=== PATIENT | female | born 1940 ===

== ENCOUNTER 2017-09-20 13:46 | Inpatient (IN) | payer MEDICARE ==
[2017-09-20] MEDS ORDERED: Sodium Chloride 0.9% 1,000 ML IV ONE (14:05)
[2017-09-20] MEDS ORDERED: Sodium Chloride 0.9% 1,000 ML ONE (14:34)
--- NOTE | 2017-09-20 14:35 | RAD ---
PROCEDURE: CHEST RADIOGRAPH, 1 VIEW HISTORY: chest pain COMPARISON: None available. FINDINGS: LUNGS: Clear. PLEURA: No pneumothorax or pleural fluid seen. CARDIOVASCULAR: Normal. OSSEOUS STRUCTURES: No significant abnormalities. VISUALIZED UPPER ABDOMEN: Normal. OTHER FINDINGS: None. IMPRESSION: No active disease.
[2017-09-20 14:43] LABS: BASO % 0.5 % (0.0-2.0); HEMOGLOBIN 12.3 g/dL (11.0-16.0); LYMPH # 0.5 K/uL (1.0-4.3); LYMPH % 12.9 % (20.0-40.0); MEAN CELL VOLUME 88.6 fL (81.0-99.0); MEAN CORPUSCULAR HGB CONC 33.8 g/dL (33.0-37.0); MEAN PLATELET VOLUME 9.6 fL (7.2-11.7); MONO # 0.3 K/uL (0.0-0.8); MONO % 7.5 % (0.0-10.0); NEUT # 2.9 K/uL (1.8-7.0); NEUT % 79.1 % (50.0-75.0); NRBC % 0.1 % (0.0-2.0); RBC 4.1 Mil/uL (3.80-5.20); RED CELL DISTRIBUTION WIDTH 14.4 % (11.5-14.5); WHITE BLOOD COUNT 3.7 K/uL (4.8-10.8)
[2017-09-20 14:56] LABS: VENOUS BLOOD GAS BASE EXCESS -15.9 mmol/L (0.0-2.0); VENOUS BLOOD GAS PCO2 17 mmHg (40-60); VENOUS BLOOD GAS PO2 104 mm/Hg (30-55); VENOUS BLOOD PH 7.29 (7.32-7.43)
[2017-09-20 14:57] LABS: ALB/GLOB RATIO 1.2 (1.0-2.1); ALBUMIN 3.8 g/dL (3.5-5.0); ALT/SGPT 44 U/L (9-52); AST/SGOT 47 U/L (14-36); BLOOD UREA NITROGEN 14 mg/dL (7-17); CALCIUM 8.5 mg/dl (8.6-10.4); GFR AFRICAN-AMERICAN > 60; GFR NON-AFRICAN AMERICAN > 60
[2017-09-20 14:58] LABS: INR 1.1; PROTHROMBIN TIME 12.4 SECONDS (9.7-12.2)
--- NOTE | 2017-09-20 14:58 | C.PDOC ---
History Of Present Illness 76-year-old female, PMHx includes Dementia, presents to the emergency department with complaints of generalized weakness, fever x3 days. Patient states "diagnosed with flu" at urgent care, but still has worsening cough. Denies any shortness of breath, nausea/vomiting, neck pain, back pain, visual changes, dizziness, abdominal pain. as per family, pt is confused baseline, but is more confused. Time Seen by Provider: 09/20/17 13:47 Chief Complaint (Nursing): Weakness/Neurological Deficit History Per: Patient History/Exam Limitations: no limitations Onset/Duration Of Symptoms: Days Current Symptoms Are (Timing): Still Present Past Medical History Reviewed: Historical Data, Nursing Documentation, Vital Signs Vital Signs: Last Vital Signs Temp 98.9 F 09/20/17 22:52 Pulse 78 09/20/17 22:52 Resp 20 09/20/17 22:52 BP 115/65 09/20/17 22:52 Pulse Ox 97 09/20/17 22:52 - Medical History PMH: Dementia Family History: States: No Known Family Hx - Social History Hx Alcohol Use: No Hx Substance Use: No Review Of Systems Constitutional: Positive for: Fever, Weakness ENT: Negative for: Ear Pain, Ear Discharge, Nose Congestion, Throat Pain Cardiovascular: Negative for: Chest Pain Respiratory: Positive for: Cough. Negative for: Shortness of Breath Gastrointestinal: Negative for: Nausea, Vomiting, Abdominal Pain, Diarrhea Genitourinary: Negative for: Dysuria, Hematuria Musculoskeletal: Negative for: Neck Pain, Back Pain Neurological: Negative for: Numbness, Headache, Dizziness Physical Exam - Physical Exam Appears: Non-toxic, No Acute Distress Skin: Normal Color, Warm, Dry, No Rash Head: Normacephalic Eye(s): bilateral: PERRL Nose: Normal Oral Mucosa: Moist Lips: Normal Appearing Neck: Normal ROM, Trachea Midline, Supple, Other (No meningeal signs) Chest: Symmetrical Cardiovascular: Rhythm Regular, No Murmur Respiratory: No Decreased Breath Sounds, No Accessory Muscle Use, Other (coarse breath sounds B/L) Extremity: Normal ROM, No Deformity, No Swelling Neurological/Psych: Oriented x3, Normal Speech ED Course And Treatment - Laboratory Results Result Diagrams: 09/20/17 14:40 09/20/17 14:40 O2 Sat by Pulse Oximetry: 97 (RA) Pulse Ox Interpretation: Normal Medical Decision Making Medical Decision Making: ro sepsis/ams- labs imaging pending- flu positive. ekg nsr [address] twave changes Disposition - Disposition Disposition: HOSPITALIZED Disposition Time: 22:54 Condition: FAIR - Clinical Impression Clinical Impression: Sepsis, Influenza, Altered mental status - Scribe Statement The provider has reviewed the documentation as recorded by the Scribe (Sara Morris) All medical record entries made by the Scribe were at my direction and personally dictated by me. I have reviewed the chart and agree that the record accurately reflects my personal performance of the history, physical exam, medical decision making, and the department course for this patient. I have also personally directed, reviewed, and agree with the discharge instructions and disposition. Decision To Admit - Pt Status Changed To: Hospital Disposition Of: Inpatient - Admit Certification Admit to Inpatient:: After my assessment, the patient will require hospitalization for at least two midnights. This is because of the severity of symptoms shown, intensity of services needed, and/or the medical risk in this patient being treated as an outpatient. - InPatient: Physician Admission Certification: I certify that this patient requires 2 or more midnights of care for the following reason:: ams, suspet sepsis. needs iv anbitoics tamiflu - . Bed Request Type: Regular Admitting Physician: Miriam Stover Patient Diagnosis: Sepsis, Influenza, Altered mental status
[2017-09-20] MEDS ORDERED: Azithromycin 500 MG in Sodium Chloride 0.9% 250 ML IVPB STA (15:01)
--- NOTE | 2017-09-20 15:57 | CT ---
PROCEDURE: CT HEAD WITHOUT CONTRAST. HISTORY: ams COMPARISON: None available. TECHNIQUE: Axial computed tomography images were obtained through the head/brain without intravenous contrast. Radiation dose: Total exam DLP = 989.63 mGy-cm. This CT exam was performed using one or more of the following dose reduction techniques: Automated exposure control, adjustment of the mA and/or kV according to patient size, and/or use of iterative reconstruction technique. FINDINGS: HEMORRHAGE: No intracranial hemorrhage. BRAIN: No mass effect or edema. Mild diffuse age-appropriate cerebral atrophy. Moderate periventricular white matter lucency consistent with chronic microvascular ischemic change. No evidence of acute infarct. VENTRICLES: Unremarkable. No hydrocephalus. CALVARIUM: Unremarkable. PARANASAL SINUSES: Unremarkable as visualized. No significant inflammatory changes. MASTOID AIR CELLS: Unremarkable as visualized. No inflammatory changes. OTHER FINDINGS: None. IMPRESSION: No intracranial mass, hemorrhage or evidence of acute infarct. Moderate chronic white matter ischemic change. Mild age-appropriate atrophy.
[2017-09-20] MEDS ORDERED: Oseltamivir 6 MG/ML PO SCH ×2 (16:30→18:00)
--- NOTE | 2017-09-20 16:38 | CP.PCM.HP ---
Past Patient History - Past Social History Smoking Status: Never Smoked - NEUROLOGICAL Hx Dementia: Yes - PSYCHIATRIC Hx Substance Use: No - SURGICAL HISTORY Hx Surgeries: No Meds Allergies/Adverse Reactions: Allergies Allergy/AdvReac Type Severity Reaction Status Date / Time No Known Allergies Allergy Unverified 09/20/17 14:00 Physical Exam - Constitutional Appears: Well - Head Exam Head Exam: ATRAUMATIC, NORMAL INSPECTION, NORMOCEPHALIC - Eye Exam Eye Exam: EOMI, Normal appearance, PERRL Pupil Exam: NORMAL ACCOMODATION, PERRL - ENT Exam ENT Exam: Mucous Membranes Moist, Normal Exam - Neck Exam Neck exam: Positive for: Normal Inspection - Respiratory Exam Respiratory Exam: Decreased Breath Sounds - Cardiovascular Exam Cardiovascular Exam: REGULAR RHYTHM, +S1, +S2 - GI/Abdominal Exam GI & Abdominal Exam: Diminished Bowel Sounds, Soft - Rectal Exam Rectal Exam: Deferred Results - Vital Signs Recent Vital Signs: Last Vital Signs Temp 104.3 F H 09/20/17 13:51 Pulse 109 H 09/20/17 13:51 Resp 21 09/20/17 13:51 BP 150/65 09/20/17 13:51 Pulse Ox 97 09/20/17 15:42 - Labs Result Diagrams: 09/20/17 14:40 09/20/17 14:40 Labs: Laboratory Results - last 24 hr 09/20/17 09/20/17 09/20/17 14:04 14:40 14:40 WBC 3.7 L RBC 4.10 Hgb 12.3 Hct 36.3 MCV 88.6 MCH 30.0 MCHC 33.8 RDW 14.4 Plt Count 141 MPV 9.6 Neut % (Auto) 79.1 H Lymph % (Auto) 12.9 L Brooks % (Auto) 7.5 Eos % (Auto) 0.0 Baso % (Auto) 0.5 Neut # (Auto) 2.9 Lymph # (Auto) 0.5 L Brooks # (Auto) 0.3 Eos # (Auto) 0.0 Baso # (Auto) 0.0 PT 12.4 H INR 1.1 APTT 24 pO2 VBG pH VBG pCO2 VBG HCO3 VBG Total CO2 VBG O2 Sat (Calc) VBG Base Excess VBG Potassium Glucose Lactate Crit Value Called To Crit Value Called By Crit Value Read Back Blood Gas Notified Time Sodium Potassium Chloride Carbon Dioxide Anion Gap BUN Creatinine Est GFR ( Amer) Est GFR (Non-Af Amer) Random Glucose Calcium Total Bilirubin AST ALT Alkaline Phosphatase Troponin I Total Protein Albumin Globulin Albumin/Globulin Ratio Venous Blood Potassium Influenza Typ A,B (EIA) Pos for influenza b H 09/20/17 09/20/17 14:40 14:50 WBC RBC Hgb Hct MCV MCH MCHC RDW Plt Count MPV Neut % (Auto) Lymph % (Auto) Brooks % (Auto) Eos % (Auto) Baso % (Auto) Neut # (Auto) Lymph # (Auto) Brooks # (Auto) Eos # (Auto) Baso # (Auto) PT INR APTT pO2 104 H VBG pH 7.29 L VBG pCO2 17 L* VBG HCO3 12.5 VBG Total CO2 8.7 L VBG O2 Sat (Calc) 100.9 H VBG Base Excess -15.9 L VBG Potassium 0.8 L* Glucose 39 L* Lactate 0.8 Crit Value Called To Nakul tinoco rn Crit Value Called By Mr Crit Value Read Back Y Blood Gas Notified Time 1456 Sodium 136 158.0 H Potassium 4.1 Chloride 99 132.0 H Carbon Dioxide 24 Anion Gap 17 BUN 14 Creatinine 0.7 Est GFR ( Amer) > 60 Est GFR (Non-Af Amer) > 60 Random Glucose 140 H Calcium 8.5 L Total Bilirubin 0.3 AST 47 H ALT 44 Alkaline Phosphatase 87 Troponin I < 0.0120 Total Protein 7.2 Albumin 3.8 Globulin 3.3 Albumin/Globulin Ratio 1.2 Venous Blood Potassium 0.8 L* Influenza Typ A,B (EIA)
[2017-09-20] MEDS: Enoxaparin 40 mg Syringe SC SCH (17:20)
[2017-09-20] MEDS ORDERED: Enoxaparin 40 mg Syringe ONE (17:20)
[2017-09-20 19:17] LABS: SQUAMOUS EPITHIAL 1 /hpf (0-5); URINE BILIRUBIN NEGATIVE (NEGATIVE); URINE CLARITY Clear (Clear); URINE COLOR Straw (YELLOW); URINE GLUCOSE (UA) NORMAL (Normal); URINE LEUKOCYTE ESTERASE NEG Leu/uL (Negative); URINE PROTEIN NEGATIVE (NEGATIVE); URINE UROBILINOGEN NORMAL mg/dL (0.2-1.0)
[2017-09-20 19:23] LABS: URINE BLOOD TRACE (NEGATIVE)
[2017-09-21] MEDS ORDERED: Pantoprazole 40 mg EC Tab PO SCH (10:00)
[2017-09-21] MEDS: cefTRIAXone 2 GM in Sodium Chloride 0.9% 100 ML IVPB SCH (11:33)
[2017-09-21] MEDS: Enoxaparin 40 mg Syringe SC SCH (11:33)
[2017-09-21] MEDS: Oseltamivir 6 MG/ML PO SCH ×2 (11:34→17:42)
--- NOTE | 2017-09-21 15:17 | CP.PCM.PN ---
Subjective - Date & Time of Evaluation Date of Evaluation: 09/21/17 Time of Evaluation: 08:20 - Subjective Subjective: clinically same Objective - Vital Signs/Intake and Output Vital Signs (last 24 hours): Temp Pulse Resp BP Pulse Ox 98.6 F 94 H 20 105/61 90 L 09/21/17 08:34 09/21/17 08:34 09/21/17 08:34 09/21/17 08:34 09/21/17 08:34 Intake and Output: 09/21/17 09/21/17 06:59 18:59 Intake Total 500 Balance 500 - Medications Medications: Current Medications Donepezil HCl (Aricept) 10 mg PO [facility] Enoxaparin Sodium (Lovenox) 40 mg SC DAILY [facility] Last Admin: 09/21/17 11:33 Dose: 40 mg Ceftriaxone Sodium 2 gm/ (Sodium Chloride) 100 mls @ 100 mls/hr IVPB DAILY [facility] PRN Reason: Protocol Last Admin: 09/21/17 11:33 Dose: 100 mls/hr Memantine (Namenda) 10 mg PO DAILY [facility] Oseltamivir Phosphate (Tamiflu Susp) 30 mg PO BID [facility] Last Admin: 09/21/17 11:34 Dose: 30 mg Pantoprazole Sodium (Protonix Ec Tab) 40 mg PO DAILY [facility] Last Admin: 09/21/17 11:33 Dose: 40 mg Pneumococcal Polyvalent Vaccine (Pneumovax 23 Vaccine) 0.5 ml IM .ONCE ONE Stop: 09/22/17 10:01 - Labs Labs: 09/20/17 14:40 09/20/17 14:40 PT 12.4 SECONDS (9.7-12.2) H 09/20/17 14:40 INR 1.1 09/20/17 14:40 APTT 24 SECONDS (21-34) 09/20/17 14:40 - Constitutional Appears: Well - Head Exam Head Exam: ATRAUMATIC, NORMAL INSPECTION, NORMOCEPHALIC - Eye Exam Eye Exam: EOMI, Normal appearance, PERRL Pupil Exam: NORMAL ACCOMODATION, PERRL - ENT Exam ENT Exam: Mucous Membranes Moist, Normal Exam - Neck Exam Neck Exam: Full ROM, Normal Inspection. absent: Lymphadenopathy - Respiratory Exam Respiratory Exam: Decreased Breath Sounds - Cardiovascular Exam Cardiovascular Exam: REGULAR RHYTHM, +S1, +S2 - GI/Abdominal Exam GI & Abdominal Exam: Soft, Diminished Bowel Sounds - Rectal Exam Rectal Exam: Deferred Assessment and Plan - Assessment and Plan (Free Text) Plan: Continue ceftriaxone Continue Lovenox Protonix Tamiflu Follow-up with ID consult As ordered
--- NOTE | 2017-09-21 16:02 | CP.PCM.CON ---
History of Present Illness - History of Present Illness History of Present Illness: dictated Past Patient History - Past Medical History & Family History Past Medical History?: Yes - Past Social History Smoking Status: Unknown If Ever Smoked - NEUROLOGICAL Hx Dementia: Yes - MUSCULOSKELETAL/RHEUMATOLOGICAL Hx Falls: Yes - PSYCHIATRIC Hx Substance Use: No - SURGICAL HISTORY Hx Surgeries: No - ANESTHESIA Hx Anesthesia: Yes Hx Anesthesia Reactions: No Meds Allergies/Adverse Reactions: Allergies Allergy/AdvReac Type Severity Reaction Status Date / Time No Known Allergies Allergy Unverified 09/20/17 14:00 - Medications Medications: Current Medications Donepezil HCl (Aricept) 10 mg PO HS [facility] Enoxaparin Sodium (Lovenox) 40 mg SC DAILY [facility] Last Admin: 09/21/17 11:33 Dose: 40 mg Ceftriaxone Sodium 2 gm/ (Sodium Chloride) 100 mls @ 100 mls/hr IVPB DAILY [facility] PRN Reason: Protocol Last Admin: 09/21/17 11:33 Dose: 100 mls/hr Memantine (Namenda) 10 mg PO DAILY [facility] Oseltamivir Phosphate (Tamiflu Susp) 30 mg PO BID [facility] Last Admin: 09/21/17 11:34 Dose: 30 mg Pantoprazole Sodium (Protonix Susp) 40 mg PO DAILY [facility] Pneumococcal Polyvalent Vaccine (Pneumovax 23 Vaccine) 0.5 ml IM .ONCE ONE Stop: 09/22/17 10:01 Results - Vital Signs Recent Vital Signs: Last Vital Signs Temp 98.6 F 09/21/17 08:34 Pulse 94 H 09/21/17 08:34 Resp 20 09/21/17 08:34 BP 105/61 09/21/17 08:34 Pulse Ox 90 L 09/21/17 08:34 - Labs Result Diagrams: 09/20/17 14:40 09/20/17 14:40 Labs: Laboratory Results - last 24 hr 09/20/17 09/20/17 09/21/17 19:09 19:12 07:15 POC Glucose (mg/dL) 165 H 116 H Urine Color Straw Urine Clarity Clear Urine pH 7.0 Ur Specific [place] 1.011 Urine Protein Negative Urine Glucose (UA) Normal Urine Ketones Trace Urine Blood Trace H Urine Nitrate Negative Urine Bilirubin Negative Urine Urobilinogen Normal Ur Leukocyte Esterase Neg Urine WBC (Auto) < 1 Urine RBC (Auto) 2 Ur Squamous Epith Cells 1 09/21/17 11:17 POC Glucose (mg/dL) 107 Urine Color Urine Clarity Urine pH Ur Specific [place] Urine Protein Urine Glucose (UA) Urine Ketones Urine Blood Urine Nitrate Urine Bilirubin Urine Urobilinogen Ur Leukocyte Esterase Urine WBC (Auto) Urine RBC (Auto) Ur Squamous Epith Cells
--- NOTE | 2017-09-22 08:06 | CON ---
DATE: Patient of Dr. Justina Stover. HISTORY OF PRESENT ILLNESS: The patient is a 76-year-old female. She has history of dementia. Daughter was at the bedside. She states she was having leg weakness, fever, and she has dementia, she was getting worse and agitated. She was taken to Urgent Care in [place] and was found to have diagnosed with flu. The patient was given Tamiflu. She has taken that for 2 days, but she was having worsening of cough and getting more confused, not eating much, and was getting poor appetite, and so the family brought her over to the hospital. She is still very confused, not able to say much, and she is falling asleep and drowsy, most of the history is taken from the patient's daughter who does give history of dementia. FAMILY HISTORY: No known family history. SOCIAL HISTORY: Negative for smoking or alcohol or substance abuse. REVIEW OF SYSTEMS: She had fever, weakness, generalized poor appetite, and altered mental status. No ear, nose, throat problems. No chest problems. No chest pain. She did have cough, and she had no shortness of breath, no nausea, no vomiting, no diarrhea. No urinary symptoms reported. No hematuria, dysuria. Did have weakness but it is generalized, not local weakness, and she came in yesterday. PHYSICAL EXAMINATION: GENERAL: I find, the patient is arousable but falls asleep. VITAL SIGNS: T-max was 99.8 today, blood pressure of 109/64, respirations are 20, heart rate is 81. HEENT: Head is atraumatic, normocephalic. Pupils are reacting to light. No ear, nose, and throat problems noted. No neck pain. Trachea is central. No lymphadenopathy present. LUNGS: Clear. Decreased breath sounds bilaterally due to unable to tell the patient to breathe deep. HEART: S1, S2 is regular. No murmurs appreciated. Abdomen: Soft, nontender. No guarding, no rigidity present. EXTREMITIES: No edema, clubbing or cyanosis. LABORATORY DATA: Labs are noted. Labs show white count is 3.7, hemoglobin 12.3, hematocrit 36.3, platelet count is 141. Chemistry shows sodium 133, potassium 4.1, chloride of 99, CO2 is 24, anion gap is 17, BUN is 14, creatinine 0.7. They did a venous blood, potassium was 0.8, I am not sure about that. We will look out for the results from yesterday, and she had a chest x-ray and head CT for altered mental status, and the chest x-ray shows no active disease, and the head CT shows no intracranial mass, hemorrhage, or evidence of acute infarct, moderate chronic white matter ischemic changes, mild , and she tested positive for flu so at this time, she is on Tamiflu as well as Rocephin. If she continues to improve and she eats and her mental status comes to her baseline, probably we can send her home with the Vantin and Tamiflu, we will follow. We will see how she does for a day or two until she becomes better. We will follow. IMp : Patient is high fever no improvement with antibiotics at home tested positive for influenza with history of Dementia admitted with fever and cough r/ o pneumonia bacterial with Flu sugg: to continue Tamiflu and Rocephin for now Alphonso Warner MD MTDKristie
[2017-09-22 08:26] LABS: BASO % 0.3 % (0.0-2.0); HEMOGLOBIN 11.8 g/dL (11.0-16.0); LYMPH # 1.1 K/uL (1.0-4.3); LYMPH % 23.6 % (20.0-40.0); MEAN CELL VOLUME 87.1 fL (81.0-99.0); MEAN CORPUSCULAR HEMOGLOBIN 30.4 pg (27.0-31.0); MEAN CORPUSCULAR HGB CONC 34.9 g/dL (33.0-37.0); MEAN PLATELET VOLUME 9.3 fL (7.2-11.7); MONO # 0.2 K/uL (0.0-0.8); MONO % 4.4 % (0.0-10.0); NEUT # 3.5 K/uL (1.8-7.0); NEUT % 71.7 % (50.0-75.0); RBC 3.9 Mil/uL (3.80-5.20); RED CELL DISTRIBUTION WIDTH 14.1 % (11.5-14.5); WHITE BLOOD COUNT 4.8 K/uL (4.8-10.8)
[2017-09-22 08:34] LABS: BLOOD UREA NITROGEN 9 mg/dL (7-17); CALCIUM 8.2 mg/dl (8.6-10.4); GFR AFRICAN-AMERICAN > 60; GFR NON-AFRICAN AMERICAN > 60
[2017-09-22] MEDS: Pantoprazole 40 mg Susp UD PO SCH (09:45)
[2017-09-22] MEDS: Enoxaparin 40 mg Syringe SC SCH (09:46)
[2017-09-22] MEDS: cefTRIAXone 2 GM in Sodium Chloride 0.9% 100 ML IVPB SCH (09:46)
[2017-09-22] MEDS ORDERED: Pneumococcal 23-Valent Vaccine IM ONE (10:00)
[2017-09-22] MEDS ORDERED: Influenza Vaccine 60 mcg/0.5 mL SYR (4YR UP) IM ONE (10:00)
[2017-09-22] MEDS: Oseltamivir 6 MG/ML PO SCH ×2 (10:33→19:50)
--- NOTE | 2017-09-22 12:07 | CP.PCM.PN ---
Subjective - Date & Time of Evaluation Date of Evaluation: 09/22/17 Time of Evaluation: 12:07 - Subjective Subjective: PATIENT WAS ADMITTED FOR AMS R/O SEPSIS CONFUSED AT TIME NO SIGN OF DISTRESS NOTED PROCALCITONIN WAS SENT 1.7 DR HENDERSON MADE AWARE/ ORDER A CHEST CT PLAN TO DC HOME ON TAMIFLU AND VANTI NO FURTHER ORDERS Objective - Vital Signs/Intake and Output Vital Signs (last 24 hours): Temp Pulse Resp BP Pulse Ox 97.5 F L 74 18 107/64 96 09/22/17 07:05 09/22/17 07:05 09/22/17 07:05 09/22/17 09:28 09/22/17 07:05 - Medications Medications: Current Medications Donepezil HCl (Aricept) 10 mg PO [facility] Last Admin: 09/21/17 22:08 Dose: 10 mg Enoxaparin Sodium (Lovenox) 40 mg SC DAILY [facility] Last Admin: 09/22/17 09:46 Dose: 40 mg Ceftriaxone Sodium 2 gm/ (Sodium Chloride) 100 mls @ 100 mls/hr IVPB DAILY [facility] PRN Reason: Protocol Last Admin: 09/22/17 09:46 Dose: 100 mls/hr Memantine (Namenda) 10 mg PO DAILY [facility] Last Admin: 09/22/17 09:46 Dose: 10 mg Oseltamivir Phosphate (Tamiflu Susp) 30 mg PO BID [facility] Last Admin: 09/22/17 10:33 Dose: 30 mg Pantoprazole Sodium (Protonix Susp) 40 mg PO DAILY [facility] Last Admin: 09/22/17 09:45 Dose: 40 mg - Labs Labs: 09/22/17 08:00 09/22/17 08:00 PT 12.4 SECONDS (9.7-12.2) H 09/20/17 14:40 INR 1.1 09/20/17 14:40 APTT 24 SECONDS (21-34) 09/20/17 14:40
[2017-09-22] MEDS ORDERED: Potassium Chloride 20 mEq/15 ml LIQ UD PO ONE (14:30)
--- NOTE | 2017-09-22 14:43 | CP.PCM.PN ---
Subjective - Date & Time of Evaluation Date of Evaluation: 09/22/17 Time of Evaluation: 02:00 - Subjective Subjective: dictated Objective - Vital Signs/Intake and Output Vital Signs (last 24 hours): Temp Pulse Resp BP Pulse Ox 97.5 F L 74 18 107/64 96 09/22/17 07:05 09/22/17 07:05 09/22/17 07:05 09/22/17 09:28 09/22/17 07:05 Intake and Output: 09/22/17 09/22/17 06:59 18:59 Intake Total 500 Balance 500 - Medications Medications: Current Medications Donepezil HCl (Aricept) 10 mg PO HS [facility] Last Admin: 09/21/17 22:08 Dose: 10 mg Enoxaparin Sodium (Lovenox) 40 mg SC DAILY [facility] Last Admin: 09/22/17 09:46 Dose: 40 mg Ceftriaxone Sodium 2 gm/ (Sodium Chloride) 100 mls @ 100 mls/hr IVPB DAILY [facility] PRN Reason: Protocol Last Admin: 09/22/17 09:46 Dose: 100 mls/hr Piperacillin Sod/Tazobactam Sod (Zosyn 3.375 Gm Iv Premix) 3.375 gm in 50 mls @ 100 mls/hr IVPB Q6H [facility] PRN Reason: Protocol Memantine (Namenda) 10 mg PO DAILY [facility] Last Admin: 09/22/17 09:46 Dose: 10 mg Oseltamivir Phosphate (Tamiflu Susp) 30 mg PO BID [facility] Last Admin: 09/22/17 10:33 Dose: 30 mg Pantoprazole Sodium (Protonix Susp) 40 mg PO DAILY [facility] Last Admin: 09/22/17 09:45 Dose: 40 mg - Labs Labs: 09/22/17 08:00 09/22/17 08:00 PT 12.4 SECONDS (9.7-12.2) H 09/20/17 14:40 INR 1.1 09/20/17 14:40 APTT 24 SECONDS (21-34) 09/20/17 14:40
[2017-09-22] MEDS ORDERED: Iodixanol 320 MG/ML 100 ML BOTTLE IV ONE (15:16)
--- NOTE | 2017-09-22 15:38 | CP.PCM.PN ---
Subjective - Date & Time of Evaluation Date of Evaluation: 09/22/17 Time of Evaluation: 10:20 - Subjective Subjective: clinically better Objective - Vital Signs/Intake and Output Vital Signs (last 24 hours): Temp Pulse Resp BP Pulse Ox 97.5 F L 74 18 107/64 96 09/22/17 07:05 09/22/17 07:05 09/22/17 07:05 09/22/17 09:28 09/22/17 07:05 Intake and Output: 09/22/17 09/22/17 06:59 18:59 Intake Total 500 Balance 500 - Medications Medications: Current Medications Donepezil HCl (Aricept) 10 mg PO HS [facility] Last Admin: 09/21/17 22:08 Dose: 10 mg Enoxaparin Sodium (Lovenox) 40 mg SC DAILY [facility] Last Admin: 09/22/17 09:46 Dose: 40 mg Ceftriaxone Sodium 2 gm/ (Sodium Chloride) 100 mls @ 100 mls/hr IVPB DAILY [facility] PRN Reason: Protocol Last Admin: 09/22/17 09:46 Dose: 100 mls/hr Piperacillin Sod/Tazobactam Sod (Zosyn 3.375 Gm Iv Premix) 3.375 gm in 50 mls @ 100 mls/hr IVPB Q6H [facility] PRN Reason: Protocol Memantine (Namenda) 10 mg PO DAILY [facility] Last Admin: 09/22/17 09:46 Dose: 10 mg Oseltamivir Phosphate (Tamiflu Susp) 30 mg PO BID [facility] Last Admin: 09/22/17 10:33 Dose: 30 mg Pantoprazole Sodium (Protonix Susp) 40 mg PO DAILY [facility] Last Admin: 09/22/17 09:45 Dose: 40 mg - Labs Labs: 09/22/17 08:00 09/22/17 08:00 PT 12.4 SECONDS (9.7-12.2) H 09/20/17 14:40 INR 1.1 09/20/17 14:40 APTT 24 SECONDS (21-34) 09/20/17 14:40 - Constitutional Appears: Well - Head Exam Head Exam: ATRAUMATIC, NORMAL INSPECTION, NORMOCEPHALIC - Eye Exam Eye Exam: EOMI, Normal appearance, PERRL Pupil Exam: NORMAL ACCOMODATION, PERRL - ENT Exam ENT Exam: Mucous Membranes Moist, Normal Exam - Neck Exam Neck Exam: Full ROM, Normal Inspection. absent: Lymphadenopathy - Respiratory Exam Respiratory Exam: Decreased Breath Sounds - Cardiovascular Exam Cardiovascular Exam: REGULAR RHYTHM, +S1, +S2 - GI/Abdominal Exam GI & Abdominal Exam: Soft, Diminished Bowel Sounds - Rectal Exam Rectal Exam: Deferred Assessment and Plan (1) Altered mental status Status: Acute (2) Influenza Status: Acute (3) Sepsis Status: Acute - Assessment and Plan (Free Text) Plan: Status post Dr. Gila Zhang [place] Continue Tamiflu Patient's occasionally confused at time Status post pro calcitonin Follow-up with ID Supplementation of potassium
[2017-09-22] MEDS: Piperacill/Tazo 3.375gm in Dex 3.375 GM/50 ML BAG IVPB SCH ×2 (16:39→21:33)
--- NOTE | 2017-09-22 22:59 | CP.PCM.PN ---
Subjective - Date & Time of Evaluation Date of Evaluation: 09/22/17 Time of Evaluation: 03:00 - Subjective Subjective: dictated Objective - Vital Signs/Intake and Output Vital Signs (last 24 hours): Temp Pulse Resp BP Pulse Ox 97.4 F L 79 18 116/78 95 09/22/17 15:42 09/22/17 15:42 09/22/17 15:42 09/22/17 15:42 09/22/17 15:42 Intake and Output: 09/22/17 09/23/17 18:59 06:59 Intake Total 600 Balance 600 - Medications Medications: Current Medications Donepezil HCl (Aricept) 10 mg PO HS [facility] Last Admin: 09/22/17 21:33 Dose: 10 mg Enoxaparin Sodium (Lovenox) 40 mg SC DAILY [facility] Last Admin: 09/22/17 09:46 Dose: 40 mg Piperacillin Sod/Tazobactam Sod (Zosyn 3.375 Gm Iv Premix) 3.375 gm in 50 mls @ 100 mls/hr IVPB Q6H [facility] PRN Reason: Protocol Last Admin: 09/22/17 21:33 Dose: 100 mls/hr Memantine (Namenda) 10 mg PO DAILY [facility] Last Admin: 09/22/17 09:46 Dose: 10 mg Oseltamivir Phosphate (Tamiflu Susp) 30 mg PO BID [facility] Last Admin: 09/22/17 19:50 Dose: 30 mg Pantoprazole Sodium (Protonix Susp) 40 mg PO DAILY [facility] Last Admin: 09/22/17 09:45 Dose: 40 mg - Labs Labs: 09/22/17 08:00 09/22/17 08:00 PT 12.4 SECONDS (9.7-12.2) H 09/20/17 14:40 INR 1.1 09/20/17 14:40 APTT 24 SECONDS (21-34) 09/20/17 14:40
[2017-09-23] MEDS: Piperacill/Tazo 3.375gm in Dex 3.375 GM/50 ML BAG IVPB SCH ×4 (03:08→21:15)
[2017-09-23 07:36] LABS: BASO % 0.3 % (0.0-2.0); EOS % 0.5 % (0.0-4.0); HEMOGLOBIN 11.4 g/dL (11.0-16.0); LYMPH # 1.4 K/uL (1.0-4.3); LYMPH % 37.4 % (20.0-40.0); MEAN CELL VOLUME 87.9 fL (81.0-99.0); MEAN CORPUSCULAR HEMOGLOBIN 30.2 pg (27.0-31.0); MEAN CORPUSCULAR HGB CONC 34.4 g/dL (33.0-37.0); MONO # 0.2 K/uL (0.0-0.8); MONO % 6.6 % (0.0-10.0); NEUT # 2.1 K/uL (1.8-7.0); NEUT % 55.2 % (50.0-75.0); RBC 3.78 Mil/uL (3.80-5.20); RED CELL DISTRIBUTION WIDTH 13.8 % (11.5-14.5); WHITE BLOOD COUNT 3.8 K/uL (4.8-10.8)
[2017-09-23 07:42] LABS: ALBUMIN 3.2 g/dL (3.5-5.0); ALT/SGPT 51 U/L (9-52); AST/SGOT 50 U/L (14-36); BLOOD UREA NITROGEN 9 mg/dL (7-17); CALCIUM 8.4 mg/dl (8.6-10.4); GFR AFRICAN-AMERICAN > 60; GFR NON-AFRICAN AMERICAN > 60
--- NOTE | 2017-09-23 08:13 | PN ---
DATE: 09/22/2017 SUBJECTIVE: The patient was seen, she has dementia and she was looking stable yesterday and today and we were planning to send her back to home, but her procalcitonin came high and so I had to keep her. She is still coughing a lot and does not follow commands much as she has dementia. PHYSICAL EXAMINATION: VITAL SIGNS: T-max is 97.4, pulse 79, blood pressure 116/78, respirations are 18, saturations 95%. HEAD: Atraumatic and normocephalic. NECK: Supple. LUNGS: Clear. Decreased breath sounds bilaterally. HEART: S1, S2, is regular. ABDOMEN: Soft, nontender. No guarding, no rigidity present. EXTREMITIES: Have no edema, clubbing, or cyanosis. LABORATORY DATA AND IMAGING: Labs are noted. Labs show white count is 4.8, hemoglobin 11.8, hematocrit 34, platelet count is 151. Sodium was 137, potassium 3.4, chlorides are 99, CO2 is 28, anion gap is 13, BUN is 9, creatinine 0.7. Her procalcitonin level came high at 1.70 and she came out flu positive. We have done cultures, blood and urine cultures have been negative so far. She also had a head CT and a chest x-ray, which were negative. I have ordered a CAT scan of the chest, but I am not sure if I would be able to do it as the patient is confused. We will order a procalcitonin for tomorrow and I have changed the antibiotic to Zosyn at this time and we will continue with the Tamiflu and we will follow. IMPRESSION: She has come here with sepsis and has flu and is still coughing a lot and increased procalcitonin level, which suggests bacterial infection, on top of, and viral we already know she has. Alphonso Warner MD
[2017-09-23] MEDS ORDERED: Iodixanol 320 MG/ML 100 ML BOTTLE IV ONE (08:38)
[2017-09-23] MEDS: Enoxaparin 40 mg Syringe SC SCH (10:12)
[2017-09-23] MEDS: Oseltamivir 6 MG/ML PO SCH ×2 (10:12→19:06)
[2017-09-23] MEDS: Pantoprazole 40 mg Susp UD PO SCH (10:12)
--- NOTE | 2017-09-23 10:34 | CT ---
PROCEDURE: CT Chest with contrast HISTORY: cough r/o pneumonia COMPARISON: None. TECHNIQUE: Contiguous axial images were obtained through the chest with intravenous contrast enhancement. Sagittal and coronal reconstructions were performed. IV contrast: 100 mL Visipaque 320 Radiation dose (DLP): 269.97 MGy-cm. This CT exam was performed using one or more of the following dose reduction techniques: Automated exposure control, adjustment of the mA and/or kV according to patient size, and/or use of iterative reconstruction technique. FINDINGS: LUNGS: Left lower lobe infiltrate. Minimal subsegmental atelectasis in the apical posterior and lingular segments of the left upper lobe and in the basilar segments of the right lower lobe. No pulmonary mass. MEDIASTINUM: Unremarkable thoracic aorta. No aneurysm or dissection. Normal sized heart. Main pulmonary artery unremarkable. No vascular congestion. No lymphadenopathy. PLEURA: Minimal bilateral lower lobe dependent pleural thickening. Nonspecific. No pleural effusion. No pneumothorax. BONES: No fracture. No destructive lesion. UPPER ABDOMEN: Grossly unremarkable. OTHER FINDINGS: None. IMPRESSION: Left lower lobe infiltrate. No pleural effusion. No other significant abnormality.
[2017-09-23 16:06] VITALS: RESP 20
--- NOTE | 2017-09-23 17:50 | CP.PCM.PN ---
Subjective - Date & Time of Evaluation Date of Evaluation: 09/23/17 Time of Evaluation: 10:20 - Subjective Subjective: clinically same Objective - Vital Signs/Intake and Output Vital Signs (last 24 hours): Temp Pulse Resp BP Pulse Ox 97.5 F L 76 20 121/86 96 09/23/17 15:00 09/23/17 15:00 09/23/17 15:00 09/23/17 15:00 09/23/17 15:00 Intake and Output: 09/23/17 09/23/17 06:59 18:59 Intake Total 400 Balance 400 - Medications Medications: Current Medications Donepezil HCl (Aricept) 10 mg PO [facility] Last Admin: 09/22/17 21:33 Dose: 10 mg Enoxaparin Sodium (Lovenox) 40 mg SC DAILY [facility] Last Admin: 09/23/17 10:12 Dose: 40 mg Piperacillin Sod/Tazobactam Sod (Zosyn 3.375 Gm Iv Premix) 3.375 gm in 50 mls @ 100 mls/hr IVPB Q6H [facility] PRN Reason: Protocol Last Admin: 09/23/17 14:14 Dose: 100 mls/hr Memantine (Namenda) 10 mg PO DAILY [facility] Last Admin: 09/23/17 10:12 Dose: 10 mg Oseltamivir Phosphate (Tamiflu Susp) 30 mg PO BID [facility] Last Admin: 09/23/17 10:12 Dose: 30 mg Pantoprazole Sodium (Protonix Susp) 40 mg PO DAILY [facility] Last Admin: 09/23/17 10:12 Dose: 40 mg - Labs Labs: 09/23/17 07:03 09/23/17 07:03 PT 12.4 SECONDS (9.7-12.2) H 09/20/17 14:40 INR 1.1 09/20/17 14:40 APTT 24 SECONDS (21-34) 09/20/17 14:40 - Constitutional Appears: Well - Head Exam Head Exam: ATRAUMATIC, NORMAL INSPECTION, NORMOCEPHALIC - Eye Exam Eye Exam: EOMI, Normal appearance, PERRL Pupil Exam: NORMAL ACCOMODATION, PERRL - ENT Exam ENT Exam: Mucous Membranes Moist, Normal Exam - Neck Exam Neck Exam: Full ROM, Normal Inspection. absent: Lymphadenopathy - Respiratory Exam Respiratory Exam: Decreased Breath Sounds - Cardiovascular Exam Cardiovascular Exam: REGULAR RHYTHM, +S1, +S2 - GI/Abdominal Exam GI & Abdominal Exam: Soft, Diminished Bowel Sounds - Rectal Exam Rectal Exam: Deferred Assessment and Plan (1) Altered mental status Status: Acute (2) Influenza Status: Acute (3) Sepsis Status: Acute
--- NOTE | 2017-09-23 21:38 | CARD ---
APPROVED REPORT EKG Measurement Heart [id number] <Conclusion> Sinus rhythm Baseline artifact. Low voltage QRS Borderline ECG
[2017-09-24] MEDS: Piperacill/Tazo 3.375gm in Dex 3.375 GM/50 ML BAG IVPB SCH ×3 (04:25→15:04)
[2017-09-24 08:48] LABS: BASO % 0.5 % (0.0-2.0); EOS % 0.9 % (0.0-4.0); HEMOGLOBIN 12.2 g/dL (11.0-16.0); LYMPH % 30.9 % (20.0-40.0); MEAN CELL VOLUME 87.2 fL (81.0-99.0); MEAN CORPUSCULAR HEMOGLOBIN 29.7 pg (27.0-31.0); MEAN CORPUSCULAR HGB CONC 34.1 g/dL (33.0-37.0); MEAN PLATELET VOLUME 8.7 fL (7.2-11.7); MONO # 0.4 K/uL (0.0-0.8); MONO % 11.5 % (0.0-10.0); NEUT # 1.9 K/uL (1.8-7.0); NEUT % 56.2 % (50.0-75.0); NRBC % 0.1 % (0.0-2.0); RBC 4.12 Mil/uL (3.80-5.20); RED CELL DISTRIBUTION WIDTH 14.3 % (11.5-14.5); WHITE BLOOD COUNT 3.3 K/uL (4.8-10.8)
[2017-09-24] MEDS: Oseltamivir 6 MG/ML PO SCH ×2 (10:27→18:14)
[2017-09-24] MEDS: Enoxaparin 40 mg Syringe SC SCH (10:30)
[2017-09-24] MEDS: Pantoprazole 40 mg Susp UD PO SCH (10:30)
[2017-09-24 10:35] LABS: ALB/GLOB RATIO 1.1 (1.0-2.1); ALBUMIN 3.9 g/dL (3.5-5.0); ALT/SGPT 55 U/L (9-52); AST/SGOT 52 U/L (14-36); BLOOD UREA NITROGEN 9 mg/dL (7-17); CALCIUM 9.1 mg/dl (8.6-10.4); GFR AFRICAN-AMERICAN > 60; GFR NON-AFRICAN AMERICAN > 60
[2017-09-24] MEDS ORDERED: Potassium Chloride 20 mEq/15 ml LIQ UD PO ONE (12:00)
--- NOTE | 2017-09-24 13:14 | CP.PCM.PN ---
Subjective - Date & Time of Evaluation Date of Evaluation: 09/24/17 Time of Evaluation: 10:20 - Subjective Subjective: clinically same Objective - Vital Signs/Intake and Output Vital Signs (last 24 hours): Temp Pulse Resp BP Pulse Ox 97.8 F 71 20 116/70 95 09/24/17 08:25 09/24/17 08:25 09/24/17 08:25 09/24/17 08:25 09/24/17 08:25 Intake and Output: 09/24/17 09/24/17 06:59 18:59 Intake Total 100 Balance 100 - Medications Medications: Current Medications Donepezil HCl (Aricept) 10 mg PO HS [facility] Last Admin: 09/23/17 21:15 Dose: 10 mg Enoxaparin Sodium (Lovenox) 40 mg SC DAILY [facility] Last Admin: 09/24/17 10:30 Dose: 40 mg Piperacillin Sod/Tazobactam Sod (Zosyn 3.375 Gm Iv Premix) 3.375 gm in 50 mls @ 100 mls/hr IVPB Q6H [facility] PRN Reason: Protocol Last Admin: 09/24/17 09:30 Dose: 100 mls/hr Memantine (Namenda) 10 mg PO DAILY [facility] Last Admin: 09/24/17 10:30 Dose: 10 mg Oseltamivir Phosphate (Tamiflu Susp) 30 mg PO BID [facility] Last Admin: 09/24/17 10:27 Dose: 30 mg Pantoprazole Sodium (Protonix Susp) 40 mg PO DAILY [facility] Last Admin: 09/24/17 10:30 Dose: 40 mg - Labs Labs: 09/24/17 08:39 09/24/17 08:39 PT 12.4 SECONDS (9.7-12.2) H 09/20/17 14:40 INR 1.1 09/20/17 14:40 APTT 24 SECONDS (21-34) 09/20/17 14:40 - Constitutional Appears: Well - Head Exam Head Exam: ATRAUMATIC, NORMAL INSPECTION, NORMOCEPHALIC - Eye Exam Eye Exam: EOMI, Normal appearance, PERRL Pupil Exam: NORMAL ACCOMODATION, PERRL - ENT Exam ENT Exam: Mucous Membranes Moist, Normal Exam - Neck Exam Neck Exam: Full ROM, Normal Inspection. absent: Lymphadenopathy - Respiratory Exam Respiratory Exam: Decreased Breath Sounds - Cardiovascular Exam Cardiovascular Exam: REGULAR RHYTHM, +S1, +S2 - GI/Abdominal Exam GI & Abdominal Exam: Soft, Diminished Bowel Sounds - Rectal Exam Rectal Exam: Deferred Assessment and Plan (1) Altered mental status Status: Acute (2) Influenza Status: Acute (3) Sepsis Status: Acute
--- NOTE | 2017-09-24 13:23 | CP.PCM.PN ---
Subjective - Date & Time of Evaluation Date of Evaluation: 09/24/17 Time of Evaluation: 13:14 - Subjective Subjective: PATIENT WAS ADMITTED INFLUENZA AND R/O SEPSIS LAY IN BED CONFUSED AT TIME/ALERT NO SIGN IF DISTRESS NOTED Objective - Vital Signs/Intake and Output Vital Signs (last 24 hours): Temp Pulse Resp BP Pulse Ox 97.8 F 71 20 116/70 95 09/24/17 08:25 09/24/17 08:25 09/24/17 08:25 09/24/17 08:25 09/24/17 08:25 Intake and Output: 09/24/17 09/24/17 06:59 18:59 Intake Total 100 Balance 100 - Medications Medications: Current Medications Donepezil HCl (Aricept) 10 mg PO HS [facility] Last Admin: 09/23/17 21:15 Dose: 10 mg Enoxaparin Sodium (Lovenox) 40 mg SC DAILY [facility] Last Admin: 09/24/17 10:30 Dose: 40 mg Piperacillin Sod/Tazobactam Sod (Zosyn 3.375 Gm Iv Premix) 3.375 gm in 50 mls @ 100 mls/hr IVPB Q6H [facility] PRN Reason: Protocol Last Admin: 09/24/17 09:30 Dose: 100 mls/hr Memantine (Namenda) 10 mg PO DAILY [facility] Last Admin: 09/24/17 10:30 Dose: 10 mg Oseltamivir Phosphate (Tamiflu Susp) 30 mg PO BID [facility] Last Admin: 09/24/17 10:27 Dose: 30 mg Pantoprazole Sodium (Protonix Susp) 40 mg PO DAILY [facility] Last Admin: 09/24/17 10:30 Dose: 40 mg - Labs Labs: 09/24/17 08:39 09/24/17 08:39 PT 12.4 SECONDS (9.7-12.2) H 09/20/17 14:40 INR 1.1 09/20/17 14:40 APTT 24 SECONDS (21-34) 09/20/17 14:40 Assessment and Plan - Assessment and Plan (Free Text) Assessment: PATIENT SEEN AND EXAMINED AT THE BEDSIDE LUNG SOUND CLEAR AFEBRILE/ WBAC IS NORMAL BLOOD CULT AND URINE CULT ARE NEGATIVE CHEST CT SHOW LEFT LOBE INFILTRATION PROCALCITONIN IS 0.[address] HENDERSON AND DR WELDON WHO CLEAR PATIENT FOR DC FOLLOW UP DR Justina WELDON IN 1-2 WEEK AT HIS OFFICE ---CALL FOR APPOINTMENT FOLLOW UP WITH DR HENDERSON 1-2 WEEK AT HIS OFFICE --CALL FOR APPOINTMENT CONTINUE ALL HOME MEDICATION NEW PRESCRIPTION GIVEN TAMILFU 30 MG BY MOUTH TWICE A DAY FOR 2 DAYS VANTI 200 MG BY MOUTH TWICE A DAY FOR 10 DAYS ACTIVITY TOLERATED CALL DR Justina WELDON OR GO TO THE EMERGENCY ROOM IF SYMPTOMS RETURN OR WORSENING DISCUSS WITH PATIENT'S DAUGHTER WHO AGREE AND VERBALIZED UNDERSTANDING
[2017-09-24 16:07] VITALS: BP 120/74; PULSE 79; TEMP 97.5; O2SAT 97
--- NOTE | 2017-09-24 18:06 | CP.PCM.PN ---
Subjective - Date & Time of Evaluation Date of Evaluation: 09/24/17 Time of Evaluation: 03:00 - Subjective Subjective: dictated Objective - Vital Signs/Intake and Output Vital Signs (last 24 hours): Temp Pulse Resp BP Pulse Ox 97.5 F L 79 20 120/74 97 09/24/17 16:06 09/24/17 16:06 09/24/17 16:06 09/24/17 16:06 09/24/17 16:06 Intake and Output: 09/24/17 09/24/17 06:59 18:59 Intake Total 100 Balance 100 - Medications Medications: Current Medications Donepezil HCl (Aricept) 10 mg PO HS [facility] Last Admin: 09/23/17 21:15 Dose: 10 mg Enoxaparin Sodium (Lovenox) 40 mg SC DAILY [facility] Last Admin: 09/24/17 10:30 Dose: 40 mg Piperacillin Sod/Tazobactam Sod (Zosyn 3.375 Gm Iv Premix) 3.375 gm in 50 mls @ 100 mls/hr IVPB Q6H [facility] PRN Reason: Protocol Last Admin: 09/24/17 15:04 Dose: 100 mls/hr Memantine (Namenda) 10 mg PO DAILY [facility] Last Admin: 09/24/17 10:30 Dose: 10 mg Oseltamivir Phosphate (Tamiflu Susp) 30 mg PO BID [facility] Last Admin: 09/24/17 10:27 Dose: 30 mg Pantoprazole Sodium (Protonix Susp) 40 mg PO DAILY [facility] Last Admin: 09/24/17 10:30 Dose: 40 mg - Labs Labs: 09/24/17 08:39 09/24/17 08:39 PT 12.4 SECONDS (9.7-12.2) H 09/20/17 14:40 INR 1.1 09/20/17 14:40 APTT 24 SECONDS (21-34) 09/20/17 14:40
--- NOTE | 2017-09-24 23:09 | PN ---
DATE: 09/24/2017. SUBJECTIVE: The patient was seen today. She remains confused, but she is stable. She is in no shortness of breath. Her procalcitonin level was repeated yesterday and decreased. She is confused but stable. PHYSICAL EXAMINATION: VITAL SIGNS: T-max is 97.5, pulse 79, blood pressure 120/74, respirations 20. HEENT: Head is atraumatic, normocephalic. Pupils are reacting to light. NECK: Supple. LUNGS: Clear. Decreased breath sounds. Poor patient effort, cannot tell her to do much. HEART: S1 and S2 is regular. ABDOMEN: Soft, nontender. No guarding, no rigidity present. EXTREMITIES: Have no edema. LABORATORY DATA: Show the white count is 3.3 today, hemoglobin 12.2, hematocrit 35.9, platelet count is 251, potassium is 3.5, BUN is 9, creatinine is 0.99. The calcitonin level which was high is now 0.46. We did a CAT scan which showed a left lower lobe infiltrate. The cultures came out negative, unable to get a urine culture. IMPRESSION: She has pneumonia, secondary to flu. She had influenza B positive and has dementia. Suggest to continue Vantin for 7 days at home, and she is probably completing the Tamiflu here for 5 days. The patient to follow with Dr. Mague Stover to get a followup chest x-ray and in case she needs to return. Alphonso Warner MD
== END 2017-09-24 19:45 | disposition home or self-care (01) | DRG 871 ==
LOC: C.ER 13:46 → C.9E 15:57 → C.3T 19:42 → C.5S 09-21 18:46
PROVIDERS: ADMIT Internal Medicine Nephrology; ATTEND Internal Medicine Nephrology
DX: A41.9 Sepsis, unspecified organism (principal); J10.08 Influenza due to other identified influenza virus with other specified pneumonia; J15.9 Unspecified bacterial pneumonia; F03.90 Unspecified dementia, unspecified severity, without behavioral disturbance, psychotic disturbance, mood disturbance, and anxiety